=== PATIENT | female | born 1950 | race Caucasian/White ===

== ENCOUNTER 2024-07-04 12:21 | Emergency (ER) | payer MEDICARE, OTHER, SELFPAY ==
[2024-07-04 12:24] VITALS: BP 142/99
--- NOTE | 2024-07-04 13:57 | ED.GENMED ---
History of Present Illness
General
Chief Complaint: Blood Pressure Problem
Time Seen by Provider: 07/04/24 13:40
History of Present Illness
History of Present Illness:
74-year-old female presents to the emergency department for evaluation of elevated blood pressure readings at home. She has a prior history of hypertension that was treated with low-dose antihypertensives however she did not tolerate these and this
was discontinued greater than 1 year ago with good results and she has not had any residual hypertension. She does note increased life stressors recently that may be contributing. She typically checks her blood pressure 2-3 times weekly and has
not had any prior hypertensive readings in the past several months until today. Denies any symptoms, denies headache, chest pain, or shortness of breath.
Past History
Past History
ED Past Medical History: None
ED Past Surgical History: Orthopedic
Social History
Tobacco: Non-smoker
Review of Systems
Review of Systems
Allergies reviewed?: Yes
All Other Systems: ROS reviewed and negative except as documented in HPI and ROS
Phy Exam
Physical Exam
Physical Exam:
GEN: Well appearing, NAD, WDWN
HEENT: Oral mucosa moist, no scleral icterus
Cardiac: Regular rate and rhythm, no murmurs
Lung: No respiratory distress, no tachypnea
MSK: No gross deformity or injuries
Skin: Good color, no pallor or jaundice, no rashes
Neuro: AO x3, moves all extremities freely
Psych: Calm, cooperative
Course
Vital Signs
Initial and Last Documented VS:
Initial Vital Signs
Temp Pulse Resp BP Pulse Ox
98.0 F 79 16 142/99 98
07/04/24 12:24 07/04/24 12:24 07/04/24 12:24 07/04/24 12:24 07/04/24 12:24
Last Documented Vital Signs
Temp Pulse Resp BP Pulse Ox
98.0 F 68 20 185/104 98
07/04/24 12:24 07/04/24 14:15 07/04/24 14:15 07/04/24 14:15 07/04/24 14:15
MDM/Problems Addressed
MDM/Problems Addressed:
Patient has asymptomatic hypertension. No indication for labs. Particular given that this seems to be a 1 off event and a person who checks her blood pressure routinely, do not see any indication to start antihypertensives at this time. Recommend
primary care follow-up with continued BP screening at home
*Critical Care Note
Total Time (30-74mins, 75-104mins- exclusive of procedures): Not Applicable
ED Attending Note
-
Portions of this chart may have been created with voice recognition software.� Occasional wrong word or��sound alike� substitutions may have occurred due to the inherent limitations of voice recognition software.
Discharge Plan
Departure
Patient Disposition: Home (Routine Discharge)
Date of Disposition: 07/04/24
Time of Disposition: 13:57
Patient with high blood pressure during this ER visit?: Yes
Discharge Problem:
Asymptomatic hypertension
Instructions: High Blood Pressure (DC)
Prescriptions:
No Action
diphenhydramine HCl [Banophen] 25 MG capsule
25 mg PO HSPRN PRN (Reason: allergic reaction)
acetaminophen 325 MG tablet
650 mg PO Q4HPRN PRN (Reason: pain)
Referrals:
Migdalia Slaughter MD [Family Provider] -
Activity Restrictions/Additional Instructions:
Check your blood pressure twice weekly at consistent times
If you are continually >140/90, please consider follow up with your primary care physician to discuss BP medications
Interventions
Interventions:
*Risk Screen - Suicide Last Done: 07/04/24 14:14
*General Assessment Last Done: 07/04/24 14:13
*Neglect/Abuse Screening Last Done: 07/04/24 14:13
*Nursing Disposition Last Done: 07/04/24 14:15
ED- Cardiac Assessment Last Done: 07/04/24 14:12
ED- Neurological Assessment Last Done: 07/04/24 14:12
ED- Pulmonary Assessment Last Done: 07/04/24 14:12
Discharge Date and Time
Discharge Date/Time: 07/04/24 14:16
Print Language: PUERTO RICAN
[2024-07-04 14:13] VITALS: BP 185/104
[2024-07-04 14:15] VITALS: BP 185/104
== END 2024-07-04 14:16 | disposition home or self-care (01) ==
LOC: EMR 12:21
PROVIDERS: EMERGENCY PHYSICIAN Emergency Medicine; FAMILY PHYSICIAN Family Medicine
DX: I10 Essential (primary) hypertension (principal)
CPT/HCPCS: 99282